=== PATIENT | male | born 1965 | race Caucasian/White ===

== ENCOUNTER 2016-06-20 13:13 | Emergency (ER) | payer OTHER ==
[~2016-06-20] VITALS: Ht 182.9 cm; Wt 108.9 kg
--- NOTE | 2016-06-20 13:13 | NUR ---
ARRIVED PT ARRIVED TO ED STATING HE WAS HAVING A STOKE,NHISS SCALE PERFORMED, PT AWAKE, ALERT, ORIENTED X3. PT STATES HE WOKE UP AROUND 0200 THIS AM WITH A HEADACHE AND HAS FELT BAD SINCE.
--- NOTE | 2016-06-20 13:39 | ER.PDOC ---
General Stated Complaint: POSS CVA Time seen by MD: 13:36 Source: patient Exam Limitations: no limitations History of Present Illness Initial Comments Patient with headache that started abruptly last night associated with chills and nausea. Patient with some possible occasional blurry vision. Timing/Duration: other (12 hours) Severity/Quality: severe, worse ever Prior Headaches/Recent Trauma: frequent headaches, other (Not like prior headaches) Associated Symptoms: nausea/vomiting Allergies: Coded Allergies: Penicillins (Verified Allergy, Unknown, Hives, 06/20/16) Past Medical History Medical History: no pertinent history Surgical History: back Social History Smoking: non-smoker Alcohol Use: heavy Drug Use: none Review of Systems Constitutional: chills Eyes: blurred vision Ears, Nose, Mouth, Throat: no symptoms reported Respiratory: no symptoms reported Cardiovascular: no symptoms reported Gastrointestinal: nausea Genitourinary: no symptoms reported Musculoskeletal: no symptoms reported Skin: no symptoms reported Psychiatric/Neurological: headache All Other Systems: Reviewed and Negative Physical Exam General Appearance: No Apparent Distress, WD/WN Head/Eyes: eyes nml inspection, no facial swelling, no nystagmus, PERRL ENT: nml ENT inspection, pharynx nml Neck: nml inspection, Supple Cardiovascular: Normal Peripheral Pulses, Regular Rate, Rhythm, No Edema, No Gallop, No JVD, No Murmur Respiratory: chest non-tender, lungs clear, normal breath sounds, no respiratory distress, no accessory muscle use Gastrointestinal: Normal Bowel Sounds, No Organomegaly, No Pulsatile Mass, Non Tender, Soft Back: Normal Inspection, No CVA Tenderness, No Vertebral Tenderness Extremities: Normal Range of Motion, Non-Tender, Normal Inspection, No Pedal Edema, No Calf Tenderness, Normal Capillary Refill Psychiatric: Alert, Oriented x 3 Cranial Nerves: Normal Hearing, Normal Speech, PERRL Coordination/Gait: Normal Gait, Other (slightly clumbsy with finger to nose with left.) Motor/Sensory: No Motor Deficit, No Sensory Deficit, No Pronator Drift, Negative Babinski's Sign Skin: Warm/Dry, Normal Color Lymphatic: No Adenopathy Results/Orders Results/Orders Laboratory Tests Test 06/20/16 00:00 06/20/16 14:10 Urine Collection Type Void Urine Color Cassia (YELLOW) Urine Appearance Clear (CLEAR) Urine Bilirubin NegativeMG/DL (NEGATIVE) Urine Ketones Negative (NEGATIVE) Urine Specific Baldwin 1.010 (1.005-1.035) Urine pH 6.5 (5.0-6.0) Urine Protein Negative (NEGATIVE) Urine Urobilinogen 1.0 (NEGATIVE) Urine Nitrate Negative (NEGATAIVE) Urine Leukocyte Esterase Negative (NEGATIVE) Urine Blood Negative (NEGATIVE) Urine Glucose Normal (NEGATIVE) White Blood Count 9.910^3/uL (4.5-11.0) Red Blood Count 5.1310^6/uL (4.50-5.90) Hemoglobin 15.9g/dL (13.9-16.3) Hematocrit 46.2% (37.0-53.0) Mean Corpuscular Volume 90.1fL (78-100) Mean Corpuscular Hemoglobin 31.0pg (26-34) Mean Corpuscular Hemoglobin Concent 34.4g/dL (33-37) Red Cell Distribution Width 13.2% (11.5-14.5) Platelet Count 88980^3/uL (150-400) Mean Platelet Volume 11.3fL (7.8-11.0) Neutrophils (%) (Auto) 78.6% (41.0-85.0) Lymphocytes (%) (Auto) 13.3% (24.0-44.0) Monocytes (%) (Auto) 7.5% (5.0-12.0) Neutrophils # (Auto) 7.710^3/uL (1.8-7.7) Lymphocytes # (Auto) 1.310^3/uL (1.0-4.8) Monocytes # (Auto) 0.710^3/uL (0.3-0.8) Absolute Immature Granulocyte (auto 0.0110^3 u/L (0-2) Eosinophils % 0.3% (0.0-5.0) Basophils % 0.2% (0.0-0.2) Basophils # 0.010^3/uL (0.0-0.1) Eosinophil Count 0.010^3/uL (0.0-0.2) Prothrombin Time 11.0SEC (9.8-11.9) Prothromb Time International Ratio 1.0 Activated Partial Thromboplast Time 26.1SEC (24.67-30.72) Sodium Level 141mmol/L (132-145) Potassium Level 3.8mmol/L (3.6-5.2) Chloride Level 105.0mmol/L (96-109) Carbon Dioxide Level 24.8mmol/L (20.0-32) Anion Gap 15.0 Blood Urea Nitrogen 11mg/dL (7-18) Creatinine 1.47mg/dL (0.59-1.40) Estimat Glomerular Filtration Rate 0 BUN/Creatinine Ratio 7.0 Glucose Level 89mg/dL (70-110) Calculated Osmolality 289.9 Calcium Level 8.5mg/dL (8.4-10.5) Total Bilirubin 0.7mg/dL (0.2-1.0) Aspartate Amino Transf (AST/SGOT) 33U/L (0-35) Alanine Aminotransferase (ALT/SGPT) 42U/L (12-78) Alkaline Phosphatase 58U/L (50-136) Total Creatine Kinase 107U/L (39-308) Creatine Kinase MB 1.2ng/mL (0.5-3.6) Troponin I < 0.02ng/mL (0.00-0.05) Total Protein 7.5g/dL (6.4-8.2) Albumin 4.0g/dL (3.4-5.0) Globulin 3.5 Percent Immature Gran (Cell Imm) 0.10% (0.00-0.50) Administered Medications Medications (Trade) Dose Ordered Sig/Germaine Route PRN Reason Start Time Stop Time Status Last Admin Dose Admin Lactated Ringer's (Lactated Ringers) 1,000 ml OT STAT IV 06/20/16 15:12 06/20/16 15:26 DC 06/20/16 15:46 Magnesium Sulfate (Magnesium Sulfate) 2 gm OT ONCE IV 06/20/16 15:30 06/20/16 15:31 DC 06/20/16 15:47 Progress Progress 1600 patient feeling much better, headache is gone, and patient is anxious to go home. Normal Finger to nose, normal FSB, Normal RAH movements.. EKG/XRAY/CT/US EKG: NSR XRAY: chest (NAD) CT Comments: NAD Departure Time of Disposition: 16:30 Impression: Primary Impression: Headache Qualified Code: R51 - Headache Condition: Improved Patient Instructions: General Headache Without Cause Referrals: SCOTT LOWE (PCP) PRIMARY CARE PROVIDER Additional Instructions: Increase Fluids, get Plenty of sleep. Follow up with PCP in 3-4 days. ALLI COMER DO Jun 20, 2016 13:39
[2016-06-20 14:14] LABS: BASOPHIL % 0.2 % (0.0-0.2); EOSINOPHIL % 0.3 % (0.0-5.0); HEMATOCRIT 46.2 % (37.0-53.0); HEMOGLOBIN 15.9 g/dL (13.9-16.3); LYMPHOCYTES # 1.3 10^3/uL (1.0-4.8); LYMPHOCYTES % 13.3 % (24.0-44.0); MEAN CELL HGB CONCENTRATION 34.4 g/dL (33-37); MEAN CORP VOLUME 90.1 fL (78-100); MEAN PLATELET VOLUME 11.3 fL (7.8-11.0); MONOCYTES # 0.7 10^3/uL (0.3-0.8); MONOCYTES % 7.5 % (5.0-12.0); NEUTROPHIL # 7.7 10^3/uL (1.8-7.7); NEUTROPHILS % 78.6 % (41.0-85.0); RED CELL DISTRIBUTION WIDTH 13.2 % (11.5-14.5); WHITE BLOOD CELL 9.9 10^3/uL (4.5-11.0)
--- NOTE | 2016-06-20 14:43 | DIREP ---
PROCEDURE:CT HEAD OR BRAIN W/O CONTRAST COMPARISON:[facility] and Spiral CT, MR, MRI BRAIN W W/O CONTRAST, 04/05/2014, 12:52 PM. INDICATIONS:headache TECHNIQUE:CT images were created without intravenous contrast. FINDINGS: VENTRICLES:The ventricles are normal in size and configuration. CEREBRUM:Normal cerebral morphology with appropriate payne white matter differentiation. No acute infarct bleed or mass lesion is seen. No acute or chronic epidural, subdural or subarachnoid hemorrhage is seen. No edema, midline shift or increased intracranial pressure is seen. CEREBELLUM:Negative. BRAINSTEM:Negative. BASAL CISTERNS:Negative. HEMORRHAGE:No MASS LESION:No ACUTE INFARCT:No SKULL:Normal. SINUSES:Normal. OTHER:None CONCLUSION:Negative noncontrast CT of the head. No acute infarct or bleed or mass lesion is seen. Dictated by: Alec Carroll MD on 06/20/2016 at 02:40 PM
--- NOTE | 2016-06-20 14:45 | DIREP ---
PROCEDURE:CHEST 1 VIEW COMPARISON:[facility], CR, XRAY CHEST SINGLE VW, 03/17/2015, 04:47 PM. INDICATIONS:headache, with neuro symptoms FINDINGS: LUNGS/PLEURA:No significant pulmonary parenchymal abnormalities. No effusions. VASCULATURE:Normal. Unremarkable pulmonary vasculature. CARDIAC:Normal. No cardiac silhouette abnormality or cardiomegaly. MEDIASTINUM:Normal. No visible mass or adenopathy. BONES:Surgical changes of the spine, cervical thoracic level OTHER:Negative. CONCLUSION:No acute cardiopulmonary process. No significant change from previous examination. Dictated by: Omi Sanchez MD on 06/20/2016 at 02:44 PM
[2016-06-20 14:55] LABS: ALANINE AMINOTRANSFERASE 42 U/L (12-78); ALKALINE PHOSPHATASE 58 U/L (50-136); ASPARTATE AMINO TRANSFERASE 33 U/L (0-35); CALCIUM 8.5 mg/dL (8.4-10.5); CARBON DIOXIDE 24.8 mmol/L (20.0-32); GLUCOSE 89 mg/dL (70-110)
[2016-06-20] MEDS ORDERED: LACTATED RINGERS IV STA (15:12)
[2016-06-20 15:16] LABS: BILIRUBIN,URINE NEGATIVE (NEGATIVE)
[2016-06-20 15:19] LABS: APPEARANCE,URINE CLEAR (CLEAR); UA COLOR AMBER (YELLOW)
[2016-06-20] MEDS ORDERED: MAGNESIUM SULFATE 50 ML IV ONE (15:19)
[2016-06-20] MEDS ORDERED: LACTATED RINGERS 1,000 ML ONE (15:19)
[2016-06-20] MEDS ORDERED: MAGNESIUM SULFATE IV ONE (15:30)
[2016-06-20 16:40] VITALS: BP 120/62
== END 2016-06-20 16:41 ==
LOC: ER 13:13
DX: R51 Headache (principal); R11.2 Nausea with vomiting, unspecified; H53.8 Other visual disturbances; Z88.0 Allergy status to penicillin
CPT/HCPCS: 36415; 70450; 71010; 80053; 81002; 82550; 84484; 85025; 85610; 85730; 93005; 96365; 99285; J3475; J7120; 96374

== ENCOUNTER 2018-06-12 12:26 | Emergency (ER) | payer OTHER, MEDICARE ==
[~2018-06-12] VITALS: Ht 182.9 cm; Wt 113.4 kg
[2018-06-12 12:47] VITALS: BP 161/89
[2018-06-12] MEDS ORDERED: RANI150T4 PO (12:51)
[2018-06-12] MEDS ORDERED: QUET100T4 PO (12:51)
[2018-06-12] MEDS ORDERED: METO25TA4 PO (12:51)
[2018-06-12] MEDS ORDERED: MIRT30TA4 PO (12:51)
[2018-06-12] MEDS ORDERED: ALPR2TAB5 PO (12:51)
[2018-06-12] MEDS ORDERED: NATA300V2 IV (12:51)
[2018-06-12] MEDS ORDERED: ACET1TAB34 PO (12:51)
--- NOTE | 2018-06-12 12:52 | NUR ---
ARRIVAL PATIENT ARRIVED TO ED4 AMBULATORY WITH FAMILY, C/O OF VOMITING AND DIARRHEA FOR THE PAST 5 DAYS, ATTEMPTED TO TREAT HIMSELF AT HOME BUT DIARRHEA CONTINUES. DOES HAVE A HISTORY OF MS, CAME TO THE ED FOR FURTHER EVAL.
[2018-06-12 12:54] VITALS: BP 136/98
[2018-06-12] MEDS ORDERED: ZOFRAN IV STA (13:00)
[2018-06-12] MEDS ORDERED: NS 1000ML 1,000 ML IV STA (13:00)
--- NOTE | 2018-06-12 13:07 | ER.PDOC ---
General Chief Complaint: Nausea,Vomiting,Diarrhea Stated Complaint: VOMITING,D Time seen by MD: 13:06 Source: patient Exam Limitations: no limitations History of Present Illness Initial Comments Nausea/vomiting/diarrhea for 5 days. No abdominal pain. Severity/Quality: moderate Associated Symptoms (vomiting): freq vomitng Associated Symptoms (diarrhea): watery Allergies: Coded Allergies: Penicillins (Verified Allergy, Unknown, Hives, 06/20/16) Home Meds Reported Medications Acetaminophen With Codeine (TYLENOL-COD #3 TABLET) 1 Each Tablet, 1 TAB PO Q6 PRN for PAIN, #30 TAB 06/12/18 Natalizumab (TYSABRI) 300 Mg/15 Ml Vial, 300 MG IV MONTHLY, VIAL 06/12/18 Ranitidine Hcl (RANITIDINE HCL) 150 Mg Tablet, 150 MG PO HS, TABLET 06/12/18 Quetiapine Fumarate (SEROQUEL) 100 Mg Tablet, 1 TAB PO HS, #30 TAB 06/12/18 Mirtazapine (MIRTAZAPINE) 30 Mg Tablet, 1 TAB PO HS, #30 TAB 2 Refills 06/12/18 Metoprolol Tartrate 25MG (LOPRESSER 25MG) 25 Mg Tablet, 12.5 MG PO HS for HYPERTENSION, #60 TAB 06/12/18 Alprazolam (ALPRAZOLAM) 2 Mg Tablet, 1 TAB PO TID PRN for ANXIETY, #90 TAB 06/12/18 Vital Signs First Vital Signs Date Time Temp Pulse Resp B/P (MAP) Pulse Ox O2 Delivery O2 Flow Rate FiO2 06/12/18 12:44 97.7 99 20 97.7 06/12/18 12:45 96 Room Air 06/12/18 12:47 161/89 (113) Last Vital Signs Date Time Temp Pulse Resp B/P (MAP) Pulse Ox O2 Delivery O2 Flow Rate FiO2 06/12/18 12:47 97.7 99 20 161/89 (113) 96 Room Air 97.7 Past Medical History Medical History: GERD, hypertension, other Surgical History: cholecystectomy, neck, other Social History Smoking: non-smoker Alcohol Use: none Drug Use: none Constitutional: no symptoms reported EENTM: no symptoms reported Respiratory: no symptoms reported Cardiovascular: no symptoms reported Gastrointestinal: see HPI All Other Systems: Reviewed and Negative Physical Exam General Appearance: No Apparent Distress, WD/WN Neck: Non-Tender, Full Range of Motion, Supple, Normal Inspection Respiratory: chest non-tender, lungs clear, normal breath sounds, no respiratory distress, no accessory muscle use Cardiovascular: Normal Peripheral Pulses, Regular Rate, Rhythm, No Edema, No Gallop, No JVD, No Murmur Gastrointestinal: Normal Bowel Sounds, Non Tender, Soft Back: Normal Inspection, No CVA Tenderness, No Vertebral Tenderness Extremities: Normal Range of Motion, Non-Tender, Normal Inspection, No Pedal Edema, No Calf Tenderness, Normal Capillary Refill, Pelvis Stable 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, No Motor/Sensory Deficits, Alert, Normal Mood/Affect, Oriented x 3 Skin: Normal Color, Warm/Dry Results/Orders Results/Orders Orders - MARICRUZ MCCALL MD Cbc With Auto Diff (06/12/18 13:00) Comprehensive Metabolic Panel (06/12/18 13:00) Amylase (06/12/18 13:00) Lipase (06/12/18 13:00) Urinalysis (06/12/18 13:00) Xr Abd W/Chest (06/12/18 13:00) 0.9 % Sodium Chloride (Ns 1000ml) (06/12/18 13:00) Ondansetron Hcl (Zofran) (06/12/18 13:00) 0.9 % Sodium Chloride (Ns 1000ml) (06/12/18 13:11) Ondansetron Hcl (Zofran) (06/12/18 13:11) Vital Signs Date Time Temp Pulse Resp B/P (MAP) Pulse Ox O2 Delivery O2 Flow Rate FiO2 06/12/18 12:47 97.7 99 20 161/89 (113) 96 Room Air 97.7 06/12/18 12:45 97.7 99 20 96 Room Air 97.7 06/12/18 12:44 97.7 99 20 97.7 Administered Medications Medications (Trade) Dose Ordered Sig/Germaine Route PRN Reason Start Time Stop Time Status Last Admin Dose Admin Ondansetron HCl (Zofran) 4 mg STAT STAT IV 06/12/18 13:00 06/12/18 13:03 DC 06/12/18 13:25 4 MG Sodium Chloride 1,000 ml @ 1,200 mls/hr Q50M STAT IV 06/12/18 13:00 06/12/18 13:49 DC 06/12/18 13:25 1,200 MLS/HR Laboratory Tests Test 06/12/18 13:07 06/12/18 13:15 White Blood Count 7.0 10^3/uL (4.5-11.0) Red Blood Count 5.50 10^6/uL (4.50-5.90) Hemoglobin 17.2 g/dL (13.9-16.3) H Hematocrit 48.9 % (37.0-53.0) Mean Corpuscular Volume 88.9 fL (78-100) Mean Corpuscular Hemoglobin 31.3 pg (26-34) Mean Corpuscular Hemoglobin Concent 35.2 g/dL (33-37) Red Cell Distribution Width 14.9 % (11.5-14.5) H Platelet Count 183 10^3/uL (150-400) Mean Platelet Volume 10.6 fL (7.8-11.0) Neutrophils (%) (Auto) 47.7 % (41.0-85.0) Lymphocytes (%) (Auto) 38.8 % (24.0-44.0) Monocytes (%) (Auto) 10.8 % (5.0-12.0) Neutrophils # (Auto) 3.3 10^3/uL (1.8-7.7) Lymphocytes # (Auto) 2.7 10^3/uL (1.0-4.8) Monocytes # (Auto) 0.8 10^3/uL (0.3-0.8) Absolute Immature Granulocyte (auto 0.01 10^3 u/L (0-2) Eosinophils % 2.0 % (0.0-5.0) Basophils % 0.6 % (0.0-0.2) H Basophils # 0.0 10^3/uL (0.0-0.1) Eosinophil Count 0.1 10^3/uL (0.0-0.2) Sodium Level 140 mmol/L (132-145) Potassium Level 3.8 mmol/L (3.6-5.2) Chloride Level 103.0 mmol/L (96-109) Carbon Dioxide Level 28.8 mmol/L (20.0-32) Anion Gap 12.0 Blood Urea Nitrogen 15 mg/dL (7-18) Creatinine 1.58 mg/dL (0.59-1.40) H Estimated GFR () 56.0 (>/=60) BUN/Creatinine Ratio 9.0 Glucose Level 100 mg/dL (70-110) Calcium Level 8.8 mg/dL (8.4-10.5) Total Bilirubin 1.3 mg/dL (0.2-1.0) H Aspartate Amino Transferase (AST) 23 U/L (0-35) Alanine Aminotransferase (ALT) 46 U/L (12-78) Alkaline Phosphatase 81 U/L (50-136) Total Protein 7.6 g/dL (6.4-8.2) Albumin 4.0 g/dL (3.4-5.0) Globulin 3.6 Amylase Level 38 U/L (25-115) Lipase 110 U/L (114-286) L Percent Immature Gran (Cell Imm) 0.10 % (0.00-0.50) Urine Collection Type VOID Urine Color PARAS (YELLOW) Urine Appearance CLEAR (CLEAR) Urine Bilirubin NEGATIVE MG/DL (NEGATIVE) Urine Ketones NEGATIVE (NEGATIVE) Urine Specific [place] 1.020 (1.005-1.035) Urine pH 5 (5.0-6.0) Urine Protein 15 mg/dL (NEGATIVE) H Urine Urobilinogen NORMAL (NEGATIVE) Urine Nitrate NEGATIVE (NEGATAIVE) Urine Leukocyte Esterase NEGATIVE (NEGATIVE) Urine Blood NEGATIVE (NEGATIVE) Urine RBC NONE SEEN RBC/HPF (NONE Urine WBC 0-2 WBC/HPF (0-2) Urine Squamous Epithelial Cells RARE #/HPF (FEW) Urine Bacteria NONE SEEN (NONE SEEN) Urine Hyaline Casts 2-5 (NONE SEEN) Urine Glucose NORMAL (NEGATIVE) Progress Progress X rays: Scattered loops of mildly distended small bowel. Nonspecific. Question enteritis, versus ileus. Partial small bowel obstruction in the differential Patient feeling better after hydration. Departure Time of Disposition: 14:15 Disposition: 01 HOME, SELF-CARE Impression: Primary Impression: Gastroenteritis Condition: Improved Referrals: SCOTT LOWE (PCP) PRIMARY CARE PROVIDER Additional Instructions: Zofran ODT Start feeding with clear liquids and advance diet as tolerated F/U with PCP in 2-3 days Duration or Time Spent with Pa: 60 mins MARICRUZ MCCALL MD Jun 12, 2018 13:07
[2018-06-12 13:09] VITALS: BP 127/88
[2018-06-12 13:11] LABS: BASOPHIL % 0.6 % (0.0-0.2); EOSINOPHIL # 0.1 10^3/uL (0.0-0.2); HEMOGLOBIN 17.2 g/dL (13.9-16.3); LYMPHOCYTES # 2.7 10^3/uL (1.0-4.8); LYMPHOCYTES % 38.8 % (24.0-44.0); MEAN CELL HGB 31.3 pg (26-34); MEAN CELL HGB CONCENTRATION 35.2 g/dL (33-37); MEAN CORP VOLUME 88.9 fL (78-100); MEAN PLATELET VOLUME 10.6 fL (7.8-11.0); MONOCYTES # 0.8 10^3/uL (0.3-0.8); MONOCYTES % 10.8 % (5.0-12.0); NEUTROPHIL # 3.3 10^3/uL (1.8-7.7); NEUTROPHILS % 47.7 % (41.0-85.0); RED CELL DISTRIBUTION WIDTH 14.9 % (11.5-14.5)
[2018-06-12] MEDS ORDERED: ZOFRAN ONE (13:11)
[2018-06-12] MEDS ORDERED: NS 1000ML 1,000 ML ONE (13:11)
[2018-06-12 13:27] LABS: CALCIUM 8.8 mg/dL (8.4-10.5); CARBON DIOXIDE 28.8 mmol/L (20.0-32)
[2018-06-12 13:32] LABS: BILIRUBIN,URINE NEGATIVE (NEGATIVE); UROBILINOGEN,URINE NORMAL (NEGATIVE)
[2018-06-12 13:40] LABS: APPEARANCE,URINE CLEAR (CLEAR); UA COLOR AMBER (YELLOW)
--- NOTE | 2018-06-12 13:49 | DIREP ---
PROCEDURE:XRAY ACUTE ABD INCL UPRIGHT CHEST TECHNIQUE :Upright chest. Flat and upright views of the abdomen are also provided. COMPARISON:None. INDICATIONS:Vomiting FINDINGS: LUNGS/PLEURA:No significant pulmonary parenchymal abnormalities. No effusions. VASCULATURE:Normal. Unremarkable pulmonary vasculature. CARDIAC:Normal. No cardiac silhouette abnormality or cardiomegaly. MEDIASTINUM:Normal. No visible mass or adenopathy. BONES:Normal. No fracture or visible bony lesion. Surgical changes cervical spine. Degenerative changes lumbar spine, and hips OTHER:EKG leads overlie the chest. BOWEL GAS PATTERN:No free air. Scattered loops of dilated small bowel. Air seen in the rectum. Question ileus, versus enteritis. FREE AIR:None. CALCIFICATIONS:None significant. OTHER:Negative. CONCLUSION:Scattered loops of mildly distended small bowel. Nonspecific. Question enteritis, versus ileus. Partial small bowel obstruction in the differential Dictated by: Omi Sanchez MD on 06/12/2018 at 01:47 PM
--- NOTE | 2018-06-12 13:56 | NUR ---
XRAY PATIENT TO AND FROM XRAY WITH RADIOLOGY STAFF.
--- NOTE | 2018-06-12 14:22 | NUR ---
IV 20G IV D/C'D TIP INTACT TO RIGHT HAND NO SIGN OF INFILTRATION.
[2018-06-12 14:27] VITALS: BP 161/89
== END 2018-06-12 14:28 | disposition home or self-care (01) ==
LOC: ER 12:26
DX: K52.9 Noninfective gastroenteritis and colitis, unspecified (principal); K21.9 Gastro-esophageal reflux disease without esophagitis; I10 Essential (primary) hypertension; Z79.899 Other long term (current) drug therapy; Z88.0 Allergy status to penicillin; Z90.49 Acquired absence of other specified parts of digestive tract
CPT/HCPCS: 36415; 74022; 80053; 81000; 82150; 83690; 85025; 96361; 96374; 99284; J2405; J7030